=== PATIENT | male | born 1980 | race Caucasian/White ===

== ENCOUNTER → 2022-05-21 11:04 | Outpatient (CLI) | payer OTHER, SELFPAY ==
--- NOTE | 2022-05-21 | DI.MRI.S_ITS ---
PROCEDURE: MR LUMBAR SPINE WO CON INDICATIONS: RADICULOPATHY LUMBAR REGION TECHNIQUE: Noncontrast sagittal T1 spin echo and T2 fast echo, sagittal STIR, and T2 fast spin echo through the lumbar spine. In cases with scoliosis, additional coronal T2 fast spin echo may be performed. COMPARISON: [facility] [place], CR, XR LUMBAR SPINE WITH OBLIQUES PLUS FLEXION EXTENSION, 04/16/2022, 14:48. FINDINGS: Image quality: Excellent. Alignment and Curvature: 5 lumbar type vertebral bodies are present by plain film. 2 mm of retrolisthesis of L3 on L4. 2 mm of retrolisthesis of L5 on S1. Bone Marrow: Marrow is of normal overall signal. No acute vertebral body compression fractures. Spinal Cord: Conus medullaris terminates at the upper L2 level. Visualized cord demonstrates normal signal and size. Paraspinous Soft Tissues: No paravertebral masses. T12-L1: Normal appearance. L1-L2: Normal appearance. There is moderate foraminal stenosis. L2-L3: Normal appearance. L3-L4: Normal appearance. L4-L5: Mild diffuse disc bulge. No significant canal stenosis. Mild bilateral foraminal stenosis. L5-S1: Mild disc desiccation and disc height loss. Mild diffuse disc bulge with small superimposed broad-based right posterolateral protrusion. Mild bilateral facet hypertrophy. Mild canal stenosis. Moderate right and mild left foraminal stenosis. IMPRESSION: 1. Multilevel degenerative disc and facet disease, as well as ligamentum flavum hypertrophy and epidural lipomatosis. 2. Mild multilevel canal stenosis. 3. Multilevel foraminal stenoses, worst at L5-S1 on the right where Dictated by: Rene Garces M.D. on 05/21/2022 at 13:49 Transcribed by: MIGUEL on 05/21/2022 at 13:52 Approved by: Rene Garces M.D. on 05/21/2022 at 16:47
== END ==
PROVIDERS: Referring Provider Physical Medicine & Rehabilitation Pain Medicine; Visit Provider Physical Medicine & Rehabilitation Pain Medicine
DX: M51.16 Intervertebral disc disorders with radiculopathy, lumbar region (principal); M47.26 Other spondylosis with radiculopathy, lumbar region; M48.07 Spinal stenosis, lumbosacral region; M48.061 Spinal stenosis, lumbar region without neurogenic claudication
CPT/HCPCS: 72148

== ENCOUNTER 2023-10-08 11:40 | Day surgery (SDC) | payer OTHER, SELFPAY ==
--- NOTE | 2023-10-08 | PATH_ITS ---
[facility] Accession Number: [id number] No. of containers..01 Tissue . 01 Material submitted: . gastrointestinal site - ERYTHEMA AND GASTRIC POLYPS . 01 Diagnosis: Stomach and Gastric Polyps: Gastric antral and body mucosa with mild chronic inflammation and reactive foveolar hyperplasia. Negative for Helicobacter organisms by immunohistochemistry. Negative for intestinal metaplasia. Negative for dysplasia and malignancy. MRV 10/13/2023 1456 Local . 01 Electronically signed: . Frank Rees MD, PhD, Pathologist NPI- [id number] . 01 Gross description: . ERYTHEMA AND GASTRIC POLYPS: Received in formalin are 2 fragment(s) of cedillo, soft tissue measuring 0.2 x 0.2 x 0.2 cm to 0.3 x 0.3 x 0.2 cm submitted entirely in 1 cassette(s) /RUBIN 10/09/2023 1921 Local . 01 Microscopic: . An immunohistochemical stain was performed to evaluate for Helicobacter organisms and is negative. The control stain showed appropriate reactivity. . * This test was developed and its performance characteristics determined by [facility]. It has not been cleared or approved by the U.S. Food and Drug Administration. The FDA has determined that such clearance or approval is not necessary. This test is used for clinical purposes. It should not be regarded as investigational or for research. . 01 Pathologist provided ICD-10: K29.70, K31.7 . 01 CPT . 144957, C31998 Specimen Comment: A courtesy copy of this report has been sent to [phone] Performed at: 01 [facility] [address] [place] [address] [address], [place], [place] [id number] MD Derik Mobley MD Phone: [phone]
[2023-10-08 12:06] VITALS: BP 129/76; PULSE 88; RESP 19; TEMP 36.4; O2SAT 96
[2023-10-08] MEDS: LACTATED RINGERS 1,000 ML 42 ML IV (12:19)
--- NOTE | 2023-10-08 12:22 | PM.PREOP ---
Pre-operative Note COVID-19 COVID-19 status: Negative Interval Note History & Physical reviewed/Exam performed by Physician: Yes Changes to H&P: No ASA Class (for procedural sedation): II
--- NOTE | 2023-10-08 12:23 | PM.OP.EGD ---
Operative Date/Time/Diagnoses Date of procedure: 10/08/23 Pre-op diagnosis: See indication Procedure & Clinicians Study performed: And findings EGD Indications: Cough and upper abdominal bloating and belching rule out GERD rule out abnormality at the GE junction Surgeon: Victor Manuel Kaur Procedure Notes Procedure in detail: After informed consent was obtained the patient was placed in left lateral decubitus position. The video upper scope placed into the oropharynx and with the patient's help swallowed into the esophagus. The esophagus stomach and duodenum were carefully examined. On withdrawal retroflexed view the GE junction was performed. The scope was removed. The patient tolerated procedure well. Blood loss none Complications none Sedation mac Findings 1. Normal esophagus with very regular the Z-line/squamocolumnar junction 2. Mild patchy gastric erythema throughout with rare 2-3 mm polyps all biopsied and placed in 1 bottle 3. Normal duodenal bulb and sweep We will merely await pathology on the biopsies and be in touch with the by telephone.
[2023-10-08 13:10] VITALS: BP 127/81; PULSE 105; RESP 16; TEMP 36.4; O2SAT 93
[2023-10-08 13:15] VITALS: BP 123/84; PULSE 95; RESP 12; O2SAT 118
[2023-10-08 13:19] VITALS: BP 139/72; PULSE 127; RESP 15; O2SAT 96
[2023-10-08 13:28] VITALS: BP 122/86; PULSE 103; RESP 16; TEMP 36.4; O2SAT 94
== END 2023-10-08 13:39 | disposition home or self-care (01) ==
PROVIDERS: Referring Provider Internal Medicine Gastroenterology; Visit Provider Internal Medicine Gastroenterology
PROC: 0DJ08ZZ Inspection of Upper Intestinal Tract, Via Natural or Artificial Opening Endoscopic (ICD-10-PCS; CPT 43235; principal; 2023-10-08 13:00)
DX: K29.50 Unspecified chronic gastritis without bleeding (principal); K21.9 Gastro-esophageal reflux disease without esophagitis; R14.0 Abdominal distension (gaseous); R14.2 Eructation; R05.9 Cough, unspecified
CPT/HCPCS: 43239; J2704